=== PATIENT | female | born 1975 | race Caucasian/White ===

== ENCOUNTER 2018-06-11 19:36 | Inpatient (IN) | payer OTHER ==
--- NOTE | 2018-06-11 20:32 | C.PDOC ---
History Of Present Illness Patient presents to the ER as a prescreen for ETOH detox. Patient states she drinks vodka daily, last drink was a few hours ago. Denies physical complaints at this time. Time Seen by Provider: 06/11/18 20:32 Chief Complaint (Nursing): Substance Abuse History Per: Patient History/Exam Limitations: no limitations Onset/Duration Of Symptoms: Hrs Current Symptoms Are (Timing): Still Present Suicide/Self Injury Attempted (Context): None Modifying Factor(s): Alcohol Severity: None Pain Scale Rating Of: 0 Associated Symptoms: denies: Depression, Suicidal Thoughts Involuntary Hold By: None Recent travel outside of the [place]: No Past Medical History Reviewed: Historical Data, Nursing Documentation, Vital Signs Family History: States: No Known Family Hx Review Of Systems Constitutional: Negative for: Fever, Chills Cardiovascular: Negative for: Chest Pain, Palpitations Respiratory: Negative for: Cough, Shortness of Breath Gastrointestinal: Negative for: Nausea, Vomiting Neurological: Negative for: Weakness, Numbness Physical Exam - Physical Exam Appears: Non-toxic Skin: Warm, Dry Head: Normacephalic Oral Mucosa: Moist Chest: Symmetrical, No Tenderness Cardiovascular: Rhythm Regular Respiratory: No Rales, No Rhonchi, No Wheezing Gastrointestinal/Abdominal: Soft, No Tenderness Neurological/Psych: Oriented x3 ED Course And Treatment - Laboratory Results Result Diagrams: 06/11/18 21:04 06/11/18 21:04 Disposition Discussed With DrElvia: Cordell Mays Comment: accepted the pt on his service and took over the care at 12:10 AM Doctor Will See Patient In The: Hospital Counseled Patient/Family Regarding: Studies Performed, Diagnosis - Disposition Disposition: HOSPITALIZED Disposition Time: 20:32 Condition: FAIR Forms: [facility] (Iraqi) - POA Present On Arrival: None - Clinical Impression Clinical Impression: Drug abuse, Alcohol use disorder - Scribe Statement The provider has reviewed the documentation as recorded by the Scribe John Vick All medical record entries made by the Scribe were at my direction and personally dictated by me. I have reviewed the chart and agree that the record accurately reflects my personal performance of the history, physical exam, medical decision making, and the department course for this patient. I have also personally directed, reviewed, and agree with the discharge instructions and disposition. Decision To Admit - Pt Status Changed To: Hospital Disposition Of: Inpatient - Admit Certification Admit to Inpatient:: After my assessment, the patient will require hospitalization for at least two midnights. This is because of the severity of symptoms shown, intensity of services needed, and/or the medical risk in this patient being treated as an outpatient. - InPatient: Physician Admission Certification: I certify that this patient requires 2 or more midnights of care for the following reason:: After my assessment, the patient will require hospitalization for at least two midnights. This is because of the severity of symptoms shown, intensity of services needed, and/or the medical risk in this patient being treated as an outpatient. - . Bed Request Type: Detox Admitting Physician: Cordell Mays Patient Diagnosis: Drug abuse, Alcohol use disorder
[2018-06-11 21:15] LABS: BASO # 0.1 K/uL (0.0-0.2); BASO % 2.4 % (0.0-2.0); EOS # 0.2 K/uL (0.0-0.7); EOS % 3.1 % (0.0-4.0); HEMOGLOBIN 13.3 g/dL (11.0-16.0); LYMPH # 1.8 K/uL (1.0-4.3); LYMPH % 32.8 % (20.0-40.0); MEAN CELL VOLUME 92.8 fL (81.0-99.0); MEAN CORPUSCULAR HEMOGLOBIN 31.5 pg (27.0-31.0); MEAN PLATELET VOLUME 8.4 fL (7.2-11.7); MONO # 0.4 K/uL (0.0-0.8); MONO % 7.7 % (0.0-10.0); NEUT # 2.9 K/uL (1.8-7.0); NRBC % 0.1 % (0.0-2.0); RBC 4.22 Mil/uL (3.80-5.20); RED CELL DISTRIBUTION WIDTH 15.3 % (11.5-14.5); WHITE BLOOD COUNT 5.4 K/uL (4.8-10.8)
[2018-06-11 21:27] LABS: HCG,QUALITATIVE URINE NEGATIVE (NEGATIVE)
[2018-06-11 21:36] LABS: ALB/GLOB RATIO 1.1 (1.0-2.1); ALBUMIN 3.8 g/dL (3.5-5.0); ALT/SGPT 315 U/L (9-52); AST/SGOT 611 U/L (14-36); BLOOD UREA NITROGEN 7 mg/dL (7-17); CALCIUM 8.7 mg/dl (8.6-10.4); GFR NON-AFRICAN AMERICAN > 60; SQUAMOUS EPITHIAL 9 /hpf (0-5); URINE BILIRUBIN NEGATIVE (NEGATIVE); URINE BLOOD NEGATIVE (NEGATIVE); URINE CLARITY Clear (Clear); URINE COLOR Yellow (YELLOW); URINE GLUCOSE (UA) NORMAL (Normal); URINE PROTEIN NEGATIVE (NEGATIVE); URINE UROBILINOGEN NORMAL mg/dL (0.2-1.0)
[2018-06-11 21:39] LABS: BARBITURATES, UR NEGATIVE (NEGATIVE); BENZODIAZEPINES, UR NEGATIVE (NEGATIVE); OPIATES, UR NEGATIVE (NEGATIVE); PHENCYCLIDINE, UR NEGATIVE (NEGATIVE)
[2018-06-11 21:44] LABS: URINE BACTERIA FEW (<OCC); URINE LEUKOCYTE ESTERASE 1+ Leu/uL (Negative)
--- NOTE | 2018-06-12 01:49 | PCM.BM ---
<Chaparro Morse - Last Filed: 06/12/18 01:47> Treatment Plan Problems - Problems identified on initial assessmt potential for alcohol withdrawal Date Initiated: 06/12/18 Time Initiated: 01:47 Assessment reference: NA Status: Active Treatment assets and liabiliti Patient Assests: adapts well, educated, ADL independent, physically healthy Patient Liabilities: poor support system, substance abuse - Milieu Protocol Maintain good personal hygiene: daily Encourage regular showers, daily Remind patient to perform daily oral care, daily Assist patient to perform ADL's Maintain personal safety: every shift Educate patient to report safety concerns to staff, every shift Monitor environment for contraband/sharps Medication safety: Monitor for expected outcome, potential side effects: every shift, Assess barriers to learning: every shift, Assess readiness for medication education: every shift <Gloria Dixon - Last Filed: 06/12/18 12:03> - Diagnosis (1) Alcohol use disorder Status: Acute Interventions: 06/12/18 12:03 * Assess 7x/week regarding severity of withdrawal * Educate regarding risks, benefits, side effects and alternatives of med ications * Use Motivational Interviewing for abstinence * Use CBT for relapse prevention * Medication management for withdrawal symptoms * Encourage medication assisted treatment *
[2018-06-12] MEDS: Albuterol HFA 90 mcg/actuation (8 g) INH PRN (04:04)
[2018-06-12] MEDS: Methadone 40 mg Tab PO SCH (09:50)
[2018-06-12] MEDS: Multiple Vitamins Tab PO SCH (09:50)
--- NOTE | 2018-06-12 10:08 | PCM.PSYCH ---
Initial Psychiatric Evaluation - Initial Psychiatric Evaluation Type of Admission: Voluntary Legal Status: Capacity Chief Complaint (in patient's own words): "Alcohol, I need help!" History of Present Illness and Precipitating Events: She is a 43 year old female who is single and has two children ages 5 and 8. She is living with her mother and is on disability for the past 2-3 years due to asthma. Pt drinks 3-4 pints of vodka a day. She began drinking at 17 years old but it became regular 1 year ago. Her last drink was yesterday in the afternoon. She has had 1 seizure related to alcohol use one month ago. She has undergone det oxification once at [facility] a long time ago but her memory is hazy as to exactly when. She has not been in a rehabilitation center before and denies other hospitalizations for psychiatric conditions. She is on a methadone program (125mg) for the past year at [facility]. She smokes less than a pack of cigarettes a day and takes 1-2 stick of Xanax once a day. She denies use of other substances. Her plan after this is to enter another program. Pt denies suicidal or homicidal ideations. Pt is feeling anxious and depressed. Pt is tremulous and sweaty, has bone aches, and swollen legs. Past Medical History: Hep C. LFTs are very high>500 Allergies: Denies Surgical History: Denies Family History: Mother with depressive d/o unspecified Psychiatric History: Bipolar d/o, anxiety d/o and she was depressed, likely traumatized in the past Current Medications: Active Medications Generic Name Dose Route Start Last Admin Trade Name Freq PRN Reason Stop Dose Admin Albuterol 1 puff 06/12/18 03:24 06/12/18 04:04 Ventolin Hfa 90 Mcg/Actuation (8 G) INH 1 puff RQ6 PRN Administration Shortness of Breath Clonidine HCl 0.1 mg 06/12/18 00:31 Catapres PO Q8H PRN Withdrawal Symptoms Folic Acid 1 mg 06/12/18 10:00 06/12/18 09:50 Folic Acid PO 1 mg DAILY LLOYD Administration Gabapentin 300 mg 06/12/18 10:15 Neurontin PO BID LLOYD Hydroxyzine HCl 25 mg 06/12/18 00:32 06/12/18 04:04 Atarax PO 25 mg Q6H PRN Administration Anxiety Ibuprofen 600 mg 06/12/18 00:34 06/12/18 04:03 Motrin Tab PO 600 mg Q6H PRN Administration Pain, moderate (4-7) Influenza Virus Vaccine 60 mcg 06/15/18 11:15 Fluzone Quad [id number] IM 06/15/18 11:16 .ONCE ONE Lorazepam 1 mg 06/12/18 06:36 06/12/18 06:43 Ativan PO 1 mg Q6 PRN Administration Anxiety/Alcohol Withdrawal Lorazepam 1 mg 06/12/18 10:00 06/12/18 09:50 Ativan PO 06/16/18 09:59 1 mg Q6H LLOYD Administration Taper Methadone HCl 120 mg 06/12/18 10:00 06/12/18 09:50 Methadose PO 120 mg DAILY LLOYD Administration Methadone HCl 5 mg 06/12/18 10:00 06/12/18 09:51 Methadone PO 5 mg DAILY LLOYD Administration Multivitamins 1 tab 06/12/18 10:00 06/12/18 09:50 Hexavitamin PO 1 tab DAILY LLOYD Administration Ondansetron HCl 4 mg 06/12/18 00:32 Zofran Odt PO Q8H PRN Nausea/Vomiting Pneumococcal Polyvalent Vaccine 0.5 ml 06/15/18 11:15 Prevnar 13 IM 06/15/18 11:16 .ONCE ONE Thiamine HCl 100 mg 06/12/18 10:00 06/12/18 09:50 Vitamin B1 Tab PO 100 mg DAILY LLOYD Administration Trazodone HCl 50 mg 06/12/18 00:32 Desyrel PO HS PRN Insomnia Past Psychiatric History - Past Psychiatric History Previous Treatment History: Inpatient Pertinent Medical Hx (Current Medical&Sleep Prob, Allergies): Allergies Allergy/AdvReac Type Severity Reaction Status Date / Time No Known Allergies Allergy Verified 06/11/18 20:32 Methadone [Methadose] 125 mg PO DAILY 06/12/18 Review of Systems - Neurological Neurological: Tremor - Psychiatric Psychiatric: Abnormal Sleep Pattern, Anhedonia, Anxiety, Behavioral Changes, Change in Appetite, Depression, Difficulty Concentrating, Hopelessness, Irritability, Mood Swings, Panic Attacks. absent: Hallucinations, Homicidal Ideation, Paranoia, Suicidal Ideation Mental Status Examination - Personal Presentation Personal Presentation: Looks older than stated age - Affect Affect: Constricted - Motor Activity Motor Activity: Calm - Reliability in Providing Information Reliability in Providing Information: Good - Speech Speech: Organized - Mood Mood: Depressed, Anxious - Formal Thought Process Formal Thought Process: No Impairment - Cognitive Functions Orientation: Person, Place, Situation, Time Sensorium: Alert Attention/Concentration: Attentive Estimate of Intelligence: Average Judgement: Intact, as evidence by: Insight regarding need for hospitalization Memory: Recent intact, as evidence by: Ability to recall events of the day, Remote intact, as evidenced by: Abilit to recall sig. 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 Attend groups and activities Supportive therapy and psychoeducation NC for abstinence CBT for relapse prevention Encourage MAT Refer to rehab or IOP, and self-help groups Teach healthy lifestyle methods, i.e. diet, exercise, meditation Smoking cessation with NC Nicotine patch if needed 34 min Projected ELOS: 5 days Prognosis: good w treatment - Smoking Cessation Smoking Cessation Initiated: Yes
[2018-06-13] MEDS: Methadone 40 mg Tab PO SCH (09:17)
[2018-06-13] MEDS: Multiple Vitamins Tab PO SCH (09:17)
--- NOTE | 2018-06-13 12:44 | PCM.PYCHPN ---
Psychiatric Progress Note - Psychiatric Progress Note Patient seen today, length of contact: 16 min Patient Chief Complaint: "I don't feel well" Problems Identified/Issues Discussed: The pt is seen, chart reviewed, case discussed with staff. The pt is compliant with medications and reports no side-effects. Symptoms are improving but needs more time to stabilize. Pt attends groups and activities. Support given, psycho-education provided. After care discussed. Medication Change: Yes (detox changes daily) Medical Record Reviewed: Yes Mental Status Examination - Cognitive Function Orientation: Person, Place, Situation, Time Memory: Intact Attention: WNL Concentration: Poor Association: WNL Fund of Knowledge: WNL - Mood Mood: Depressed, Anxious - Affect Affect: Constricted - Speech Speech: Appropriate - Formal Thought Process Formal Thought Process: No Impairment - Suicidal Ideation Suicidal Ideation: No - Homicidal Ideation Homicidal Ideation: No Goal/Treatment Plan - Goal/Treatment Plan Need for Continued Stay: Discharge may exacerbated symptoms, Severe functional impairment Progress Toward Problem(s) and Goals/Treatment Plan: Taper with ativan Gabapentin for augmentation and anxiety Monitor mood sxs, LFTs are VERY high, will hold off on psych meds for now Continue methadone 125 mg but she is recommended to lower See GI re Hep C As needed medications All risks, benefits and alternatives of the meds discussed, and the pt agreed and understood. Attend groups and activities Supportive therapy and psychoeducation WA for abstinence CBT for relapse prevention Encourage MAT Refer to rehab or IOP, and self-help groups Teach healthy lifestyle methods, i.e. diet, exercise, meditation Smoking cessation with WA Nicotine patch if needed Estimated Date of D/C: 06/15/18
[2018-06-14] MEDS: Multiple Vitamins Tab PO SCH (08:59)
[2018-06-14] MEDS: Methadone 40 mg Tab PO SCH (09:01)
--- NOTE | 2018-06-14 12:05 | PCM.PYCHPN ---
Psychiatric Progress Note - Psychiatric Progress Note Patient seen today, length of contact: 17 min Patient Chief Complaint: "I am withdrawing" Problems Identified/Issues Discussed: The pt is seen, chart reviewed, case discussed with staff. Support given, CBT and MS used briefly No new symptoms reported, improving slowly and needs more time No SEs from medications, risks discussed. After care discussed Medication Change: Yes (detox changes daily) Medical Record Reviewed: Yes Mental Status Examination - Cognitive Function Orientation: Person, Place, Situation, Time Memory: Intact Attention: WNL Concentration: Poor Association: WNL Fund of Knowledge: WNL - Mood Mood: Depressed, Anxious - Affect Affect: Constricted - Speech Speech: Appropriate - Formal Thought Process Formal Thought Process: No Impairment - Suicidal Ideation Suicidal Ideation: No - Homicidal Ideation Homicidal Ideation: No Goal/Treatment Plan - Goal/Treatment Plan Need for Continued Stay: Discharge may exacerbated symptoms, Severe functional impairment Progress Toward Problem(s) and Goals/Treatment Plan: Taper with ativan Gabapentin for augmentation and anxiety Monitor mood sxs, LFTs are VERY high, will hold off on psych meds for now Continue methadone 125 mg but she is recommended to lower See GI re Hep C As needed medications All risks, benefits and alternatives of the meds discussed, and the pt agreed and understood. Attend groups and activities Supportive therapy and psychoeducation MS for abstinence CBT for relapse prevention Encourage MAT Refer to rehab or IOP, and self-help groups Teach healthy lifestyle methods, i.e. diet, exercise, meditation Smoking cessation with MS Nicotine patch if needed Estimated Date of D/C: 06/15/18
[2018-06-14 14:15] VITALS: RESP 18
--- NOTE | 2018-06-15 08:54 | PCM.PYCHDC ---
Mental Status Examination - Mental Status Examination Orientation: Person, Place, Situation, Time Memory: Intact Mood: Anxious Affect: Broad Speech: Appropriate Attention: WNL Concentration: WNL Association: WNL Fund of Knowledge: WNL Formal Thought Process: No Impairment Suicidal Ideation: No Current Homicidal Ideation?: No Discharge Summary - Discharge Note Reason for Hospitalization: Alcohol detox Consultations:: List each consultation separately and include: 1. Reason for request. 2. Findings. 3. Follow-up Summary of Hospital Course include:: 1. Description of specific treatment plan utilized for patients during their course of treatmen. 2. Summarize the time- course for resolution of acute symptoms and/or regressed behaviors. 3. Describe issues identified and worked on during hospitalization. 4. Describe medication utilized. 5. Describe medical problems identified and treated. 6. Reassessment of suicide risk Summary of Hospital Course: On Admission: On admission: She is a 43 year old female who is single and has two children ages 5 and 8. She is living with her mother and is on disability for the past 2-3 years due to asthma. Pt drinks 3-4 pints of vodka a day. She began drinking at 17 years old but it became regular 1 year ago. Her last drink was yesterday in the afternoon. She has had 1 seizure related to alcohol use one month ago. She has undergone detoxification once at [facility] a long time ago but her memory is hazy as to exactly when. She has not been in a rehabilitation center before and denies other hospitalizations for psychiatric conditions. She is on a methadone program (125mg) for the past year at [facility]. She smokes less than a pack of cigarettes a day and takes 1-2 stick of Xanax once a day. She denies use of other substances. Her plan after this is to enter another program. Pt denies suicidal or homicidal ideations. Pt is feeling anxious and depressed. Pt is tremulous and sweaty, has bone aches, and swollen legs. Past Medical History: Hep C. LFTs are very high>500 Allergies: Denies Surgical History: Denies Family History: Mother with depressive d/o unspecified Psychiatric History: Bipolar d/o, anxiety d/o and she was depressed, likely traumatized in the past Hospital course: The pt was admitted and started on treatment with psychotherapy, support, psychoeducation and medications. IA and CBT used. The pt attended groups and activities, as well as milieu therapy. All the risks and benefits of medications are discussed and the patient understood and agreed. The pt improved with the treatments provided. After care discussed with the patient. Waiting to hear from [facility]. 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 Follow after care plan as discussed. Use relapse prevention skills Return to ER or call 911 if suicidal, homicidal or symptoms relapse. Stay away from stress, alcohol and drugs. See primary doctor regularly and get labs. Prescriptions/Medication Reconciliation: Albuterol HFA [Ventolin HFA 90 mcg/actuation (8 g)] 1 puff INH RQ6 PRN #1 inhaler PRN Reason: Shortness Of Breath Gabapentin [Neurontin] 400 mg PO TID #90 cap hydrOXYzine HCl [Atarax] 25 mg PO BID PRN #30 tab PRN Reason: Anxiety QUEtiapine [Seroquel] 100 mg PO HS #30 tab traZODone [Desyrel] 50 mg PO HS PRN #30 tab PRN Reason: Insomnia
[2018-06-15] MEDS: Multiple Vitamins Tab PO SCH (09:00)
[2018-06-15] MEDS: Methadone 40 mg Tab PO SCH (09:01)
[2018-06-15] MEDS ORDERED: Influenza Vaccine 60 MCG/0.5 ML SYR (3 yr & up) IM ONE (11:15)
[2018-06-15] MEDS ORDERED: Pneumoc 13 Val Conjugate Vaccine Inj IM ONE (11:15)
[2018-06-15] MEDS: Albuterol HFA 90 mcg/actuation (8 g) INH PRN (13:28)
[2018-06-15 14:20] VITALS: BP 131/85; PULSE 101; TEMP 99.4; O2SAT 94
== END 2018-06-15 14:40 | disposition home or self-care (01) | DRG 772 ==
LOC: C.ER 19:36 → C.7D 06-12 00:09
PROVIDERS: ADMIT Psychiatry & Neurology Psychiatry; ATTEND Psychiatry & Neurology Psychiatry
PROC: HZ2ZZZZ Detoxification Services for Substance Abuse Treatment (ICD-10-PCS; principal; 2018-06-12)
PROC: HZ52ZZZ Individual Psychotherapy for Substance Abuse Treatment, Cognitive-Behavioral (ICD-10-PCS; 2018-06-12)
PROC: HZ59ZZZ Individual Psychotherapy for Substance Abuse Treatment, Supportive (ICD-10-PCS; 2018-06-12)
PROC: HZ56ZZZ Individual Psychotherapy for Substance Abuse Treatment, Psychoeducation (ICD-10-PCS; 2018-06-12)
PROC: HZ42ZZZ Group Counseling for Substance Abuse Treatment, Cognitive-Behavioral (ICD-10-PCS; 2018-06-12)
PROC: HZ46ZZZ Group Counseling for Substance Abuse Treatment, Psychoeducation (ICD-10-PCS; 2018-06-12)
PROC: GZHZZZZ Group Psychotherapy (ICD-10-PCS; 2018-06-12)
PROC: GZ58ZZZ Individual Psychotherapy, Cognitive-Behavioral (ICD-10-PCS; 2018-06-12)
PROC: GZ56ZZZ Individual Psychotherapy, Supportive (ICD-10-PCS; 2018-06-12)
DX: F10.230 Alcohol dependence with withdrawal, uncomplicated (principal); B19.20 Unspecified viral hepatitis C without hepatic coma; F11.20 Opioid dependence, uncomplicated; F31.9 Bipolar disorder, unspecified; Y90.8 Blood alcohol level of 240 mg/100 ml or more; F13.230 Sedative, hypnotic or anxiolytic dependence with withdrawal, uncomplicated; F41.9 Anxiety disorder, unspecified; F17.210 Nicotine dependence, cigarettes, uncomplicated; Z81.8 Family history of other mental and behavioral disorders